=== PATIENT | male | born 1985 | race Caucasian/White ===

== ENCOUNTER 2017-02-13 05:13 | Emergency (ER) | payer OTHER ==
[~2017-02-13] VITALS: Ht 180.3 cm; Wt 81.1 kg
[~2017-02-13 05:13] MED LIST: FLEXERIL10 MG PO; MOTRIN800 MG PO
[2017-02-13] MEDS ORDERED: TYLENOL WITH C1 EACH PO (06:36)
[2017-02-13] MEDS ORDERED: AMOXICILLIN500 M1 PO (06:36)
[2017-02-13 07:08] VITALS: BP 142/100
== END 2017-02-13 07:10 | disposition home or self-care (01) ==
LOC: EME 05:13
DX: K04.7 Periapical abscess without sinus (principal); F17.200 Nicotine dependence, unspecified, uncomplicated
CPT/HCPCS: 99281; 99283